=== PATIENT | male | born 1965 | race Two or more races ===

== ENCOUNTER 2019-11-15 19:11 | Inpatient (IN) | payer SELFPAY ==
[~2019-11-15] VITALS: Ht 170.2 cm; Wt 95.9 kg
[2019-11-15] MEDS ORDERED: SODIUM CHLORIDE 0.9% 1,000 ML IV ONE (19:46)
[2019-11-15] MEDS ORDERED: DexAMETHasone SOD PHOS 10MG/1ML VIAL INJ IV ONE (20:00)
[2019-11-15 20:54] LABS: Albumin 3.5 g/dL (3.4-5.0); BUN/Creatinine Ratio 17.2; Calcium 8.1 mg/dL (8.5-10.1); Magnesium 2.4 mg/dL (1.6-2.6); Potassium 3.3 mmol/L (3.5-5.1)
[2019-11-15 21:02] LABS: Bilirubin, Total 0.6 mg/dL (0.2-1.0); Total Protein 7.8 g/dL (6.4-8.2)
[2019-11-15 21:14] LABS: INR 1.03 (0.9-1.15); Partial Thromboplastin Time 34.4 sec (23.0-31.2)
[2019-11-15 21:23] LABS: Basophils # (auto) 0 10 ^3/uL (0-0.2); Basophils % (auto) 0.4 % (0.0-2.0); Eosinophils # (auto) 0 10 ^3/uL (0-0.8); Hematocrit 42.2 % (41.0-53.0); Lymphocytes # (auto) 0.5 10 ^3/uL (0.4-5.4); Lymphocytes % (auto) 11.6 % (10.0-50.0); Mean Corpuscular Hemoglobin 28.1 pg (28.0-32.0); Mean Corpuscular Hgb Conc. 33.1 g/dL (32.0-36.0); Monocytes # (auto) 0.4 10 ^3/uL (0-1.3); Monocytes % (auto) 8.6 % (0.0-12.0); Neutrophils # (auto) 3.6 10 ^3/uL (1.6-8.6); Neutrophils % (auto) 79.4 % (37.0-80.0); Platelet Count (auto) 123 10^3/uL (140-450); Red Blood Cells 4.96 10^6/uL (4.5-5.90); Red Cell Distribution Width 14.2 % (11.8-14.3); White Blood Cell 4.6 10^3/uL (4.4-10.8)
[2019-11-16] MEDS ORDERED: cefTRIAXone 1GM/50ML D5W 50 ML IV ONE (00:15)
[2019-11-16] MEDS ORDERED: ENOXAPARIN SOD 100 MG/1 ML SYRINGE SC ONE (00:15)
[2019-11-16] MEDS ORDERED: SODIUM CHLORIDE 0.9% 1,000 ML IV ONE (00:15)
[2019-11-16 01:14] LABS: Urine Bacteria FEW /hpf (None Seen); Urine Blood Negative /uL (Negative); Urine Mucus FEW (None Seen); Urine Specific Gravity 1.025 (1.001-1.035); Urine WBC 1 /hpf (0 - 3)
[2019-11-16] MEDS ORDERED: MORPHINE SULF INJ 2 MG/ML SYRINGE 1ML IV PRN (05:15)
[2019-11-16] MEDS ORDERED: ACETAMINOPHEN 325 MG TAB PO PRN (05:15)
[2019-11-16] MEDS ORDERED: ONDANSETRON HCL 4 MG/2 ML VIAL IV PRN (05:15)
[2019-11-16] MEDS ORDERED: TEMAZEPAM 15 MG CAP PO PRN (05:15)
[2019-11-16] MEDS ORDERED: NITROGLYCERIN 0.4 MG SL TAB SL PRN (05:15)
[2019-11-16 06:07] LABS: Magnesium 2.5 mg/dL (1.6-2.6)
[2019-11-16 06:17] LABS: CRP High Sensitivity 7.87 mg/dL (< 0.3)
[2019-11-16 08:09] LABS: Basophils # (auto) 0 10 ^3/uL (0-0.2); Basophils % (auto) 0.1 % (0.0-2.0); Eosinophils # (auto) 0 10 ^3/uL (0-0.8); Hematocrit 42.6 % (41.0-53.0); Lymphocytes # (auto) 0.6 10 ^3/uL (0.4-5.4); Lymphocytes % (auto) 17.6 % (10.0-50.0); Mean Corpuscular Hemoglobin 28.2 pg (28.0-32.0); Mean Corpuscular Volume 85.6 fL (80.0-100.0); Monocytes # (auto) 0.2 10 ^3/uL (0-1.3); Monocytes % (auto) 5.5 % (0.0-12.0); Neutrophils # (auto) 2.8 10 ^3/uL (1.6-8.6); Neutrophils % (auto) 76.8 % (37.0-80.0); Platelet Count (auto) 132 10^3/uL (140-450); Red Blood Cells 4.97 10^6/uL (4.5-5.90); Red Cell Distribution Width 14.2 % (11.8-14.3); White Blood Cell 3.6 10^3/uL (4.4-10.8)
[2019-11-16 08:17] LABS: Albumin 3.2 g/dL (3.4-5.0); BUN/Creatinine Ratio 17.3; Calcium 8.1 mg/dL (8.5-10.1)
[2019-11-16 08:20] LABS: Bilirubin, Total 0.6 mg/dL (0.2-1.0); Total Protein 7.4 g/dL (6.4-8.2)
[2019-11-16] MEDS: DexAMETHasone SOD PHOS 10MG/1ML VIAL INJ IV SCH (08:31)
[2019-11-16] MEDS: FAMOTIDINE 20 MG TAB PO SCH ×2 (08:32→22:21)
[2019-11-16] MEDS: ENOXAPARIN SOD 40 MG/0.4 ML SYRINGE SC SCH (08:32)
[2019-11-16] MEDS: CHOLECALCIFEROL (VITD3) 2,000 UNIT CAP PO SCH (08:32)
[2019-11-16] MEDS: ZINC SULFATE 220mg CAP or TAB PO SCH (08:32)
[2019-11-16] MEDS: ASCORBIC ACID 1,000 MG TAB PO SCH (08:32)
[2019-11-16] MEDS: DOXYCYCLINE 100MG/250ML 250 ML IV SCH ×2 (08:32→22:20)
[2019-11-16] MEDS: ASPirin 81 mg TAB PO SCH (08:32)
[2019-11-16 09:00] VITALS: BP 155/91
--- NOTE | 2019-11-16 09:00 | NUR ---
Telemetry admit from [facility] admitted to Telemetry unit after SBAR received. Patient oriented to Mia Ríos, primary RN, unit, room, bed, and unit policies regarding patient care and visiting hours. Patient now on continuous telemetry monitoring, tele box # 7 and telemetry reading on arrival to unit is . Patient placed on bedside oxygen, weighed by bedscale and encouraged to call if they need something. All questions and concerns addressed, patient verbalized understanding. Note:
[2019-11-16] MEDS: METOPROLOL TARTRATE 25 MG TAB PO SCH ×2 (10:00→10:30)
[2019-11-16 11:42] LABS: Cholesterol 115 mg/dL (< 200); HDL Cholesterol 35 mg/dL (40-59); LDL Cholesterol 75 mg/dL (< 100); Triglycerides 68 mg/dL (< 150)
[2019-11-16 13:00] VITALS: BP 134/96
--- NOTE | 2019-11-16 15:44 | NUR ---
EKG Done per Dr. Cai's request
--- NOTE | 2019-11-16 15:45 | NUR ---
IS at bedside taught patient proper use and patient did return demonstration.
[2019-11-16 16:43] VITALS: BP 130/90
--- NOTE | 2019-11-16 19:20 | NUR ---
Opening Shift Note Assumed care of patient, awake and alert. No S/S of distress/SOB or pain. Patient is saturating at 95% on room air. Instructed on POC and to call for assist PRN, will continue to monitor for changes Q1hr and PRN.
[2019-11-16 20:00] VITALS: BP 138/82
[2019-11-16] MEDS ORDERED: ATORVASTATIN 20 MG TAB PO SCH (22:00)
[2019-11-16 22:25] VITALS: BP 138/82
--- NOTE | 2019-11-17 04:03 | NUR ---
Patient is resting in bed with eyes closed, no distress noted saturating at 97% on room air.
[2019-11-17 05:00] VITALS: BP 135/98
[2019-11-17 07:04] LABS: Albumin 2.9 g/dL (3.4-5.0); Basophils # (auto) 0 10 ^3/uL (0-0.2); Basophils % (auto) 0.1 % (0.0-2.0); Calcium 7.9 mg/dL (8.5-10.1); Eosinophils # (auto) 0 10 ^3/uL (0-0.8); Hemoglobin 14.1 g/dL (13.5-17.5); Lymphocytes # (auto) 0.6 10 ^3/uL (0.4-5.4); Mean Corpuscular Hemoglobin 28.6 pg (28.0-32.0); Mean Corpuscular Hgb Conc. 33.7 g/dL (32.0-36.0); Monocytes # (auto) 0.9 10 ^3/uL (0-1.3); Monocytes % (auto) 8.1 % (0.0-12.0); Neutrophils # (auto) 9.1 10 ^3/uL (1.6-8.6); Neutrophils % (auto) 85.8 % (37.0-80.0); Nucleated Red Blood Cells % 0.1 %; Platelet Count (auto) 167 10^3/uL (140-450); Potassium 3.9 mmol/L (3.5-5.1); Red Blood Cells 4.95 10^6/uL (4.5-5.90); Red Cell Distribution Width 14.3 % (11.8-14.3); White Blood Cell 10.6 10^3/uL (4.4-10.8)
[2019-11-17 07:08] LABS: BUN/Creatinine Ratio 22.1; Bilirubin, Total 0.5 mg/dL (0.2-1.0); Total Protein 6.9 g/dL (6.4-8.2)
[2019-11-17 09:00] VITALS: BP 142/99
[2019-11-17] MEDS: DexAMETHasone SOD PHOS 10MG/1ML VIAL INJ IV SCH (09:45)
[2019-11-17] MEDS: DOXYCYCLINE 100MG/250ML 250 ML IV SCH (09:46)
[2019-11-17] MEDS: CHOLECALCIFEROL (VITD3) 2,000 UNIT CAP PO SCH (09:46)
[2019-11-17] MEDS: ZINC SULFATE 220mg CAP or TAB PO SCH (09:46)
[2019-11-17] MEDS: ASCORBIC ACID 1,000 MG TAB PO SCH (09:46)
[2019-11-17] MEDS: FAMOTIDINE 20 MG TAB PO SCH (09:46)
[2019-11-17] MEDS: ASPirin 81 mg TAB PO SCH (09:46)
[2019-11-17] MEDS: ENOXAPARIN SOD 40 MG/0.4 ML SYRINGE SC SCH (09:47)
[2019-11-17] MEDS: METOPROLOL TARTRATE 25 MG TAB PO SCH (09:48)
[2019-11-17 13:13] VITALS: BP 142/99
== END 2019-11-17 13:50 | disposition home or self-care (01) | DRG 177 ==
LOC: ER 19:11 → TELE 19:12 → TELE-E-ADS 11-16 09:17
PROVIDERS: ADMIT Nurse Practitioner; ATTEND Internal Medicine
DX: U07.1 COVID-19 (principal); J12.89 Other viral pneumonia; I21.A1 Myocardial infarction type 2; J98.11 Atelectasis; E66.9 Obesity, unspecified; J01.00 Acute maxillary sinusitis, unspecified; E86.0 Dehydration; I10 Essential (primary) hypertension; E87.6 Hypokalemia; E78.5 Hyperlipidemia, unspecified; Z68.33 Body mass index [BMI] 33.0-33.9, adult; Z79.899 Other long term (current) drug therapy
CPT/HCPCS: 36415; 71045; 80053; 80061; 81001; 82728; 83036; 83605; 83615; 83735; 83880; 84443; 84484; 85025; 85379; 85610; 85730; 86141; 87040; 87070; 87086; 87804; 87880; 93005; 94760; 99291; G0378; J0696; J1100; J3490